=== PATIENT | female | born 1955 | race Caucasian/White ===

== ENCOUNTER 2018-04-12 11:58 | Outpatient (CLI) | payer BC | END 2018-04-12 11:59 | disposition home or self-care (01) | LOC: BICRAD 11:58 | PROVIDERS: ATTEND Family Medicine | DX: R05 Cough (principal); R06.2 Wheezing | CPT/HCPCS: 71046 ==

== ENCOUNTER 2018-05-24 09:29 | Outpatient (CLI) | payer BC ==
--- NOTE | 2018-05-26 13:48 | PFT ---
PATIENT HISTORY: HEIGHT: 63 IN WEIGHT: 151 SMOKER: NO HOW LON YRS PACKS PER DAY: .5 PRODUCTIVE COUGH: LUNG DISEASE: PHYSICIAN INTERPRETATION FINAL REPORT: FEV1 is 1.36 liters which is 57% predicted. Forced vital capacity 2.30 liters which 74% predicted. The FEV1/FVC ratio is 59. The FEV1 did increase after bronchodilatation but the improvement is probably insignificant at 11%. The total lung capacity was normal. Residual volume was elevated at 153% predicted. DLCO was not performed. Maximum ventilatory volume is 44.47 which is 51% predicted and is appropriate for the FEV1. IMPRESSION: This is a moderate obstructive pulmonary impairment with air trapping. There is no reversibility after bronchodilatation. Stitch Wheeler: ALPHONSO Optician Apprentice: ALPHONSO NIETO
== END 2018-05-24 09:30 | disposition home or self-care (01) ==
LOC: CP 09:29
PROVIDERS: ATTEND Family Medicine
DX: J18.0 Bronchopneumonia, unspecified organism (principal); J20.9 Acute bronchitis, unspecified; J42 Unspecified chronic bronchitis
CPT/HCPCS: 94060; 94727

== ENCOUNTER 2018-11-01 08:43 | Outpatient (CLI) | payer BC ==
--- NOTE | 2018-11-01 09:33 | BD ---
DEXA BONE DENSITY STUDY: Date: 11/01/18 COMPARISON: None. HISTORY: 63-year-old postmenopausal female for screening for osteoporosis. FINDINGS: Lumbar Spine: BMD (g/cm2) L1 0.927 T-Score: -0.6 L2 0.989 T-Score: -0.4 L3 1.075 T-Score: -0.1 L4 1.070 T-Score: 0.1 L1-L4 1.017 T-Score: -0.3 Femoral Neck: 0.819 T-Score: -0.3 Total Femur: 1.151 T-Score: 1.7 IMPRESSION: Normal bone mineral density. POS: [facility]
== END 2018-11-01 08:44 | disposition home or self-care (01) ==
LOC: BICMAMMO 08:43
PROVIDERS: ATTEND Family Medicine
DX: Z13.820 Encounter for screening for osteoporosis (principal)
CPT/HCPCS: 77080

== ENCOUNTER 2018-12-12 14:13 | Outpatient (CLI) | payer BC ==
--- NOTE | 2018-12-12 14:53 | RAD ---
TWO VIEW CHEST: INDICATION: Dyspnea. COMPARISON: 04/12/2018. FINDINGS: Lungs appear clear. No infiltrate identified. Vasculature is normal. Heart size normal. IMPRESSION: No acute finding. No interval change apparent. POS: [facility]
== END 2018-12-12 14:14 | disposition home or self-care (01) ==
LOC: RAD 14:13
PROVIDERS: ATTEND Internal Medicine Critical Care Medicine
DX: R06.00 Dyspnea, unspecified (principal)
CPT/HCPCS: 71046

== ENCOUNTER 2019-03-13 10:05 | Outpatient (CLI) | payer BC ==
--- NOTE | 2019-03-13 12:48 | RAD ---
RIGHT HIP 2 VIEWS: HISTORY: Hip pain. Minimal osteophytic changes along the femoral head and neck junction are seen. Suggestion of some mi nimal cystic change along the acetabulum. No signs of fracture or other bony findings. IMPRESSION: Minimal arthritic changes of the right hip. No significant joint space narrowing. POS: [facility]
--- NOTE | 2019-03-13 12:50 | RAD ---
LEFT HIP 2 VIEWS: HISTORY: Hip pain. FINDINGS: Some minimal subtle cystic change is seen along the lateral margin of the femoral head. This raises the possibility there may e some element of femoral acetabular impingement. I do not appreciate a si gnificant degree of joint space narrowing. No fractures. IMPRESSION: Findings that raise the possibility of some minimal element of femoral acetabular impingement. Minim al joint space narrowing seen. POS: C
== END 2019-03-13 10:06 | disposition home or self-care (01) ==
LOC: BICRAD 10:05
PROVIDERS: ATTEND Family Medicine
DX: M25.552 Pain in left hip (principal); R29.898 Other symptoms and signs involving the musculoskeletal system; M54.16 Radiculopathy, lumbar region; M41.9 Scoliosis, unspecified; M16.11 Unilateral primary osteoarthritis, right hip; M25.852 Other specified joint disorders, left hip

== ENCOUNTER 2020-11-29 15:01 | Outpatient (CLI) | payer MEDICARE, BC | END 2020-11-29 15:02 | disposition home or self-care (01) | LOC: BICCT 15:01 | PROVIDERS: ATTEND Family Medicine | DX: Z12.2 Encounter for screening for malignant neoplasm of respiratory organs (principal); Z87.891 Personal history of nicotine dependence; Z01.818 Encounter for other preprocedural examination; E55.9 Vitamin D deficiency, unspecified; E03.9 Hypothyroidism, unspecified | CPT/HCPCS: 36415; 71271; 80053; 80061; 82306; 84439; 84443; 84481; 85025 ==

== ENCOUNTER 2021-10-17 11:54 | Outpatient (CLI) | payer MEDICARE, BC | END 2021-10-17 11:55 | disposition home or self-care (01) | LOC: BICMAMMO 11:54 | PROVIDERS: ATTEND Family Medicine | DX: Z12.31 Encounter for screening mammogram for malignant neoplasm of breast (principal) | CPT/HCPCS: 77063; 77067 ==

== ENCOUNTER 2022-01-22 10:27 | Outpatient (CLI) | payer MEDICARE, BC | END 2022-01-22 10:28 | disposition home or self-care (01) | LOC: TBSIIMAG 10:27 | PROVIDERS: ATTEND Physician Assistant | DX: M50.30 Other cervical disc degeneration, unspecified cervical region (principal); M47.812 Spondylosis without myelopathy or radiculopathy, cervical region; Z98.890 Other specified postprocedural states | CPT/HCPCS: 72040 ==

== ENCOUNTER 2022-02-05 08:06 | Outpatient (CLI) | payer MEDICARE, BC | END 2022-02-05 08:07 | disposition home or self-care (01) | LOC: TBSIIMAG 08:06 | PROVIDERS: ATTEND Neurological Surgery | DX: M50.30 Other cervical disc degeneration, unspecified cervical region (principal); M47.812 Spondylosis without myelopathy or radiculopathy, cervical region; Z98.890 Other specified postprocedural states; Z98.1 Arthrodesis status | CPT/HCPCS: 72141 ==

== ENCOUNTER 2024-02-18 09:39 | Outpatient (CLI) | payer MEDICARE, BC ==
[2024-02-18 11:35] LABS: Hematocrit 41.5 % (34.9-44.5); Hemoglobin 13.3 g/dL (12.0-15.5); Mean Corpuscular Hemoglobin 28.2 pg (27.0-33.0); Mean Corpuscular Volume 87.9 fL (81.6-98.3); Mean Platelet Volume 9.8 fL (7.4-10.4); Platelet Count 223 10x3/uL (150-450); RBC Distribution Width 13.7 % (11.5-14.5); Red Blood Cell (RBC) Count 4.72 10x6/uL (3.90-5.03); White Blood Cell (WBC) Count 4.9 10x3/uL (3.5-10.5)
[2024-02-18 11:49] LABS: Anion Gap 14 mmol/L (10-20); BUN (Urea Nitrogen) 10 mg/dL (9.8-20.1); Calc. Creatinine Clearance 0 mL/min (70-130); Calcium 9.1 mg/dL (7.8-10.44); Carbon Dioxide 22 mmol/L (23-31); Chloride 106 mmol/L (98-107); Estimated GFR 87; Glucose 82 mg/dL (80-115); Potassium 4.1 mmol/L (3.5-5.1); Sodium 138 mmol/L (136-145)
== END 2024-02-18 09:40 | disposition home or self-care (01) ==
LOC: LABBT 09:39
PROVIDERS: ATTEND Neurological Surgery
DX: Z01.818 Encounter for other preprocedural examination (principal); M54.16 Radiculopathy, lumbar region
CPT/HCPCS: 80048; 85027; 93005; 93010

== ENCOUNTER 2024-02-21 08:22 | Observation (INO) | payer MEDICARE, BC ==
[2024-02-18 10:35] VITALS: BMI 30.1
[2024-02-21] MEDS ORDERED: fentaNYL PF 100 MCG/2 ML SYRINGE ONE (08:38)
[2024-02-21] MEDS ORDERED: Lidocaine 1% PF 5 ML VIAL ONE (08:38)
[2024-02-21] MEDS ORDERED: PROPOFOL 20 ML ONE (08:38)
[2024-02-21] MEDS ORDERED: Rocuronium Bromide 10 MG/ML (10ML VIAL) ONE (08:38)
[2024-02-21] MEDS ORDERED: Vancomycin 1 GM VIAL ONE (08:38)
[2024-02-21] MEDS ORDERED: CEFAZOLIN 2 GM VIAL ONE (08:47)
[2024-02-21] MEDS ORDERED: Midazolam HCl 2 mg/2 ml Vial ONE (08:47)
[2024-02-21] MEDS ORDERED: Sodium Chloride 0.9% 100 ML ONE (08:48)
[2024-02-21] MEDS ORDERED: Ondansetron PF 4 MG/2 ML Vial IVP PRN (09:12)
[2024-02-21] MEDS ORDERED: Milk Of Magnesia 30 ML UDCUP PO PRN (09:12)
[2024-02-21] MEDS ORDERED: Acetaminophen/Codeine 30-300mg Tablet PO PRN (09:12)
[2024-02-21] MEDS ORDERED: Mag-Al 1200 mg/1200 mg/30 ML UDCUP PO PRN (09:12)
[2024-02-21] MEDS ORDERED: diphenhydrAMINE 50 MG/ML VIAL IVP PRN (09:12)
[2024-02-21] MEDS ORDERED: Dexamethasone 20 MG/5 ML VIAL ONE (09:43)
[2024-02-21] MEDS ORDERED: SUGAMMADEX SODIUM 200 MG/2 ML VIAL ONE (10:25)
[2024-02-21] MEDS ORDERED: Ondansetron PF 4 MG/2 ML Vial ONE (10:25)
[2024-02-21] MEDS ORDERED: Promethazine HCl 25 MG/ML VIAL IM PRN (10:53)
[2024-02-21] MEDS ORDERED: Ondansetron HCl/PF 4 MG/2 ML Vial IVP PRN (10:53)
[2024-02-21] MEDS ORDERED: fentaNYL 50 mcg/mL 1 mL Vial ONE ×4 (10:54→11:38)
[2024-02-21] MEDS ORDERED: HYDROmorphone 0.5 MG/0.5 ML SYRINGE ONE ×3 (12:04→14:05)
[2024-02-21] MEDS: Acetaminophen/Codeine 30-300mg Tablet PO PRN (16:10)
[2024-02-21] MEDS: Sodium Chloride 0.9% 1,000 ML IV SCH (16:11)
[2024-02-21] MEDS: CEFAZOLIN 2 GM in Sodium Chloride 0.9% 100 ML IVPB SCH (16:12)
[2024-02-21] MEDS ORDERED: Albuterol 2.5 MG (3 mL) NEB NEB PRN (16:57)
[2024-02-21] MEDS: Morphine 2 MG/ML VIAL SLOW IVP PRN (17:02)
[2024-02-21] MEDS: Cyclobenzaprine 10 MG TAB PO PRN (17:03)
[2024-02-21] MEDS: Ipratropium/Albuterol 3 ML NEB NEB SCH (18:56)
[2024-02-21] MEDS: Mometasone 100 MCG/PUFF (1 INHALER) INH SCH (18:56)
[2024-02-21] MEDS: Simvastatin 10 MG TAB PO SCH (20:22)
[2024-02-21] MEDS: Gabapentin 300 MG CAP PO SCH (20:22)
[2024-02-22] MEDS: Levothyroxine Sodium 75 MCG TAB PO SCH (05:37)
[2024-02-22] MEDS: traMADol HCl 50 MG TAB PO PRN (10:23)
[2024-02-22 11:41] VITALS: BP 110/65; TEMP 98.5
== END 2024-02-22 12:30 | disposition home or self-care (01) ==
LOC: SDC 08:22 → SJJU 15:26
PROVIDERS: ADMIT Neurological Surgery; ATTEND Neurological Surgery
PROC: 0SG30J1 Fusion of Lumbosacral Joint with Synthetic Substitute, Posterior Approach, Posterior Column, Open Approach (ICD-10-PCS; principal; 2024-02-21)
DX: M51.16 Intervertebral disc disorders with radiculopathy, lumbar region (principal); J44.9 Chronic obstructive pulmonary disease, unspecified; E78.5 Hyperlipidemia, unspecified; E03.9 Hypothyroidism, unspecified; Z96.642 Presence of left artificial hip joint; Z98.890 Other specified postprocedural states; Z79.890 Hormone replacement therapy; Z79.899 Other long term (current) drug therapy
CPT/HCPCS: 20930; 20936; 22612; 22840; 63047; C1713 ×4; C1889 ×2; J1100; J1170; J2250; J2272; J2405; J2704; J3010; J3370; J3490 ×2; J7050

== ENCOUNTER 2024-03-08 15:30 | Outpatient (CLI) | payer MEDICARE, BC | END 2024-03-08 15:31 | disposition home or self-care (01) | LOC: BICRAD 15:30 | PROVIDERS: ATTEND Neurological Surgery | DX: M47.26 Other spondylosis with radiculopathy, lumbar region (principal); Z98.1 Arthrodesis status | CPT/HCPCS: 72100 ==

== ENCOUNTER 2024-07-26 08:28 | Outpatient (CLI) | payer MEDICARE, BC | END 2024-07-26 08:29 | disposition home or self-care (01) | LOC: BICRAD 08:28 | PROVIDERS: ATTEND Neurological Surgery | DX: M47.26 Other spondylosis with radiculopathy, lumbar region (principal); M43.8X6 Other specified deforming dorsopathies, lumbar region; Z98.890 Other specified postprocedural states | CPT/HCPCS: 72100 ==

== ENCOUNTER 2024-08-11 13:28 | Outpatient (CLI) | payer MEDICARE, BC ==
[2024-08-11] MEDS ORDERED: Sincalide 5 MCG VIAL ONE (15:01)
[2024-08-11] MEDS ORDERED: Bacteriostatic Normal Saline 30 ML VIAL ONE (15:02)
[2024-08-11] MEDS ORDERED: Sterile Water 10 ML ONE (15:02)
== END 2024-08-11 13:29 | disposition home or self-care (01) ==
LOC: NM 13:28
PROVIDERS: ATTEND Internal Medicine Gastroenterology
DX: K76.0 Fatty (change of) liver, not elsewhere classified (principal); R10.11 Right upper quadrant pain; Z87.11 Personal history of peptic ulcer disease; Z86.0100 Personal history of colon polyps, unspecified
CPT/HCPCS: 78227; A9537; J2805

== ENCOUNTER 2025-05-22 08:58 | Outpatient (CLI) | payer MEDICARE, BC ==
[2025-05-22 09:19] LABS: Estimated GFR - POC 93.0
[2025-05-22] MEDS ORDERED: Iopamidol 370 76% 100 ML VIAL ONE (14:14)
== END 2025-05-22 08:59 | disposition home or self-care (01) ==
LOC: CT 08:58
PROVIDERS: ATTEND Internal Medicine Critical Care Medicine
DX: R91.8 Other nonspecific abnormal finding of lung field (principal); D18.03 Hemangioma of intra-abdominal structures; I70.90 Unspecified atherosclerosis
CPT/HCPCS: 36415; 71260; 82565; Q9967